=== PATIENT | male | born 1990 ===

== ENCOUNTER → 2019-08-02 | Outpatient (REF) | payer BC | LOC: M LAB REF 10:03 | PROVIDERS: ATTEND Physician Assistant Medical | DX: J02.9 Acute pharyngitis, unspecified (principal) ==

== ENCOUNTER → 2025-08-31 | Outpatient (REF) | payer OTHER | LOC: M LAB REF 12:16 | PROVIDERS: ATTEND Physician Assistant | DX: J02.9 Acute pharyngitis, unspecified (principal) ==